=== PATIENT | female | born 1995 | race Caucasian/White ===

== ENCOUNTER 2023-02-10 19:50 | Emergency (ER) | payer MEDICAID ==
[~2023-02-10] VITALS: Ht 157.5 cm; Wt 81.6 kg
[2023-02-10 23:42] LABS: BASOPHILS % (AUTO) 0.5 % (0.0-2.0); EOSINOPHILS % (AUTO) 0.3 % (0.0-6.0); HEMATOCRIT 42 % (33-45); HEMOGLOBIN 13.8 g/dL (11.5-14.8); LYMPHOCYTES # (AUTO) 0.9 K/uL (0.8-4.8); LYMPHOCYTES % (AUTO) 26.7 % (20.0-44.0); MEAN CORPUSCULAR HEMOGLOBIN 29 PG (26.0-33.0); MEAN CORPUSCULAR HGB CONC 33 g/dl (31.0-36.0); MEAN CORPUSCULAR VOLUME 90 fL (82-100); MONOCYTES # (AUTO) 0.6 K/uL (0.1-1.30); MONOCYTES % (AUTO) 18.3 % (2.0-12.0); NEUTROPHILS # (AUTO) 1.8 K/uL (1.8-8.9); NEUTROPHILS % (AUTO) 54.2 % (43.0-81.0); PLATELET COUNT (AUTO) 152 K/uL (150-450); RED BLOOD CELL COUNT(AUTO) 4.68 MIL/uL (4.0-5.2); RED CELL DISTRIBUTION WIDTH 13.9 % (11.5-15.0); WHITE BLOOD COUNT (AUTO) 3.2 K/uL (4.3-11.0)
[2023-02-10 23:55] LABS: APPEARANCE,URINE CLEAR (CLEAR); BILIRUBIN,URINE NEGATIVE (NEGATIVE); BLOOD, URINE NEGATIVE Ery/uL (NEGATIVE); COLOR,URINE LIGHT YELLOW (YELLOW); KETONES,URINE NEGATIVE (NEGATIVE); LEUKOCYTE ESTERASE ,URINE NEGATIVE (NEGATIVE); NITRITE, URINE NEGATIVE (NEGATIVE); PH,URINE 7.5 (5.0-8.0); PROTEIN,URINE NEGATIVE (NEGATIVE); UGLUCOSE NEGATIVE (NEGATIVE); UROBILINOGEN,URINE 0.2 EU/dL (0.2)
[2023-02-10 23:56] LABS: PREGNANCY TEST URINE QUAL NEGATIVE (NEGATIVE)
[2023-02-11 00:16] LABS: CALCIUM, SERUM 8.9 mg/dL (8.5-10.1); CREATININE 0.8 mg/dL (0.6-1.3); POTASSIUM 3.7 mmol/L (3.5-5.1)
[2023-02-11 00:23] LABS: BILIRUBIN,TOTAL 0.4 mg/dL (0.2-1.0)
[2023-02-11 00:48] LABS: ANISOCYTOSIS 1+; BAND % (MANUAL) 1 % (0.0-5.0); EOSINOPHILS % (MANUAL) 1 % (0-4); LYMPHOCYTES % (MANUAL) 31 % (16-48); MONOCYTES % (MANUAL) 10 % (0-11.0); NEUTROPHILS % (MANUAL) 57 (42-76); PLATELET ESTIMATE ADEQUATE
[2023-02-11 00:51] LABS: ERYTHROCYTE SEDIMENTATION RATE 32 MM/HR (0-20)
[2023-02-11] MEDS ORDERED: TYL2T PO (01:08)
[2023-02-11] MEDS ORDERED: CEPH500C2 PO (01:08)
[2023-02-11] MEDS ORDERED: IBUP-1953 PO (01:08)
[2023-02-11 01:16] VITALS: BP 132/79; TEMP 98.3; O2SAT 99
[2023-02-11] MEDS ORDERED: GABA-532 PO (17:11)
[2023-02-11] MEDS ORDERED: APIX5TAB PO (17:11)
[2023-02-11] MEDS ORDERED: LEVO100T9 PO (17:11)
[2023-02-13] MEDS ORDERED: DOXY-326 PO (11:26)
== END 2023-02-11 01:16 | disposition home or self-care (01) ==
LOC: ER 19:56
DX: L03.116 Cellulitis of left lower limb (principal); R10.2 Pelvic and perineal pain
CPT/HCPCS: 36415; 80053-TC; 84703-TC; 85025-TC; 85652-TC; 86140-TC; 93971-TC

== ENCOUNTER 2023-02-11 14:23 | Inpatient (IN) | payer MEDICAID, OTHER ==
[~2023-02-11] VITALS: Ht 157.5 cm; Wt 80.7 kg
[~2023-02-11 14:23] MED LIST: CEPH500C2 PO; IBUP-1953 PO; TYL2T PO
[2023-02-11] MEDS ORDERED: VANCOMYCIN 1 GM in IV D5W 250 ML IV ONE (17:00)
[2023-02-11] MEDS ORDERED: CEFEPIME 1 GM in IV D5W 50 ML IV ONE (17:00)
[2023-02-11] MEDS ORDERED: GABA-532 PO (17:11)
[2023-02-11] MEDS ORDERED: LEVO100T9 PO (17:11)
[2023-02-11] MEDS ORDERED: APIX5TAB PO (17:11)
[2023-02-11 17:27] LABS: BASOPHILS # (AUTO) 0.1 K/uL (0.0-0.2); BASOPHILS % (AUTO) 1.3 % (0.0-2.0); EOSINOPHILS % (AUTO) 0.2 % (0.0-6.0); HEMATOCRIT 42 % (33-45); HEMOGLOBIN 13.9 g/dL (11.5-14.8); LYMPHOCYTES # (AUTO) 0.8 K/uL (0.8-4.8); LYMPHOCYTES % (AUTO) 20.7 % (20.0-44.0); MEAN CORPUSCULAR HEMOGLOBIN 29 PG (26.0-33.0); MEAN CORPUSCULAR HGB CONC 33 g/dl (31.0-36.0); MEAN CORPUSCULAR VOLUME 89 fL (82-100); MONOCYTES # (AUTO) 0.5 K/uL (0.1-1.30); MONOCYTES % (AUTO) 12.9 % (2.0-12.0); NEUTROPHILS # (AUTO) 2.6 K/uL (1.8-8.9); NEUTROPHILS % (AUTO) 64.9 % (43.0-81.0); PLATELET COUNT (AUTO) 155 K/uL (150-450); RED BLOOD CELL COUNT(AUTO) 4.75 MIL/uL (4.0-5.2); RED CELL DISTRIBUTION WIDTH 13.7 % (11.5-15.0)
[2023-02-11 17:46] LABS: CALCIUM, SERUM 9.4 mg/dL (8.5-10.1); CREATININE 0.8 mg/dL (0.6-1.3); POTASSIUM 3.7 mmol/L (3.5-5.1)
[2023-02-11 17:52] LABS: BILIRUBIN,DIRECT 0.1 mg/dL (0.0-0.2); BILIRUBIN,TOTAL 0.4 mg/dL (0.2-1.0); TOTAL PROTEIN, SERUM 8.1 g/dL (6.4-8.2)
[2023-02-11 17:55] LABS: INR 1.07 (0.91-1.10); PARTIAL THROMBOPLASTIN TIME 34.1 SEC (24.3-34.3); PROTHROMBIN TIME 11.3 SECS (9.2-11.1)
[2023-02-11] MEDS ORDERED: FAMOTIDINE/PF INJ 20 MG/2 ML VIAL IV ONE ×2 (18:21→18:30)
[2023-02-11] MEDS ORDERED: diphenhydrAMINE HCL 50 MG/ML VIAL ONE (18:21)
[2023-02-11] MEDS ORDERED: diphenhydrAMINE HCL 50 MG/ML VIAL IV ONE (18:30)
[2023-02-11] MEDS ORDERED: HYDROCODONE/APAP 5/325MG TABLET PO PRN (19:00)
[2023-02-11] MEDS ORDERED: Z GUARD REMEDY 4 OZ OINT TP PRN (19:00)
[2023-02-11] MEDS ORDERED: ONDANSETRON HCL/PF 4 MG/2 ML VIAL IVP PRN (19:00)
[2023-02-11] MEDS ORDERED: diphenhydrAMINE HCL 50 MG/ML VIAL IV PRN (19:00)
[2023-02-11] MEDS ORDERED: ACETAMINOPHEN 325 MG TABLET PO PRN (19:00)
[2023-02-11] MEDS ORDERED: MAG HYDROX/AL HYDROX/SIMETH 30 ML UDC PO PRN (19:00)
[2023-02-11] MEDS ORDERED: MAGNESIUM HYDROXIDE 30 ML UDC PO PRN (19:00)
[2023-02-11 20:45] VITALS: BP 110/77; TEMP 98.2; O2SAT 100
[2023-02-11 21:00] VITALS: BP 110/77; TEMP 98.2; O2SAT 100
[2023-02-11] MEDS: CLINDAMYCIN 900 MG in IV D5W 50 ML IV SCH (21:43)
[2023-02-11] MEDS: GABAPENTIN 100 MG CAPSULE PO SCH (22:19)
[2023-02-12] MEDS ORDERED: APIXABAN 5 MG TABLET PO ONE (00:30)
[2023-02-12] MEDS ORDERED: APIXABAN 5 MG TABLET ONE (00:30)
[2023-02-12] MEDS: CLINDAMYCIN 900 MG in IV D5W 50 ML IV SCH ×3 (05:30→20:35)
[2023-02-12 07:03] LABS: BASOPHILS % (AUTO) 0.4 % (0.0-2.0); EOSINOPHILS % (AUTO) 1.3 % (0.0-6.0); HEMATOCRIT 43 % (33-45); HEMOGLOBIN 14.1 g/dL (11.5-14.8); LYMPHOCYTES # (AUTO) 1.1 K/uL (0.8-4.8); LYMPHOCYTES % (AUTO) 36.8 % (20.0-44.0); MEAN CORPUSCULAR HEMOGLOBIN 30 PG (26.0-33.0); MEAN CORPUSCULAR HGB CONC 33 g/dl (31.0-36.0); MEAN CORPUSCULAR VOLUME 89 fL (82-100); MONOCYTES # (AUTO) 0.7 K/uL (0.1-1.30); MONOCYTES % (AUTO) 23.7 % (2.0-12.0); NEUTROPHILS # (AUTO) 1.2 K/uL (1.8-8.9); NEUTROPHILS % (AUTO) 37.8 % (43.0-81.0); PLATELET COUNT (AUTO) 147 K/uL (150-450); RED BLOOD CELL COUNT(AUTO) 4.79 MIL/uL (4.0-5.2); RED CELL DISTRIBUTION WIDTH 13.7 % (11.5-15.0); WHITE BLOOD COUNT (AUTO) 3.1 K/uL (4.3-11.0)
[2023-02-12 07:30] VITALS: BP 116/77; TEMP 97.8; O2SAT 100
[2023-02-12 07:43] LABS: CREATININE 0.7 mg/dL (0.6-1.3); MAGNESIUM 2.5 mg/dL (1.8-2.4); POTASSIUM 3.4 mmol/L (3.5-5.1)
[2023-02-12] MEDS: LEVOTHYROXINE SODIUM 100 MCG TABLET PO SCH (07:56)
[2023-02-12] MEDS: IBUPROFEN 400 MG TABLET PO SCH ×3 (08:04→16:31)
[2023-02-12] MEDS: APIXABAN 5 MG TABLET PO SCH ×2 (08:05→20:37)
[2023-02-12] MEDS ORDERED: POTASSIUM CHLORIDE 20 MEQ TAB.PRT.SR PO SCH (10:30)
[2023-02-12 11:03] LABS: ANISOCYTOSIS 1+; BAND % (MANUAL) 5 % (0.0-5.0); BASOPHILS % (MANUAL) 0 % (0.0-2.0); EOSINOPHILS % (MANUAL) 0 % (0-4); LYMPHOCYTES % (MANUAL) 31 % (16-48); MONOCYTES % (MANUAL) 16 % (0-11.0); NEUTROPHILS % (MANUAL) 48 (42-76); PLATELET ESTIMATE ADEQUATE
[2023-02-12 16:58] VITALS: BP 118/72; TEMP 97.8; O2SAT 100
[2023-02-12 21:40] VITALS: BP 131/100; TEMP 98.6; O2SAT 100
[2023-02-12] MEDS: GABAPENTIN 100 MG CAPSULE PO SCH (22:20)
[2023-02-13] MEDS: CLINDAMYCIN 900 MG in IV D5W 50 ML IV SCH (05:34)
[2023-02-13 06:47] LABS: MAGNESIUM 2.1 mg/dL (1.8-2.4); PHOSPHORUS 4.2 mg/dL (2.5-4.9); POTASSIUM 3.6 mmol/L (3.5-5.1)
[2023-02-13 07:23] LABS: CREATININE 0.7 mg/dL (0.6-1.3)
[2023-02-13] MEDS: LEVOTHYROXINE SODIUM 100 MCG TABLET PO SCH (07:33)
[2023-02-13 08:00] VITALS: BP 109/75; TEMP 98.2; O2SAT 99
[2023-02-13] MEDS: IBUPROFEN 400 MG TABLET PO SCH (08:54)
[2023-02-13] MEDS: APIXABAN 5 MG TABLET PO SCH (08:55)
[2023-02-13] MEDS ORDERED: DOXY-326 PO (11:26)
== END 2023-02-13 11:30 | disposition home or self-care (01) | DRG 603 ==
LOC: ER 14:39 → MED 20:22
PROVIDERS: ADMIT Internal Medicine; ATTEND Internal Medicine
DX: L03.116 Cellulitis of left lower limb (principal); Q96.9 Turner's syndrome, unspecified; Z85.118 Personal history of other malignant neoplasm of bronchus and lung; Z85.43 Personal history of malignant neoplasm of ovary; Z98.62 Peripheral vascular angioplasty status; Z79.01 Long term (current) use of anticoagulants; Z85.41 Personal history of malignant neoplasm of cervix uteri; Z85.850 Personal history of malignant neoplasm of thyroid; I89.0 Lymphedema, not elsewhere classified; Z88.1 Allergy status to other antibiotic agents; Z79.890 Hormone replacement therapy; Z79.899 Other long term (current) drug therapy; Z86.718 Personal history of other venous thrombosis and embolism; G62.9 Polyneuropathy, unspecified; E03.9 Hypothyroidism, unspecified
CPT/HCPCS: 36415; 80048-TC; 80076-TC; 83735-TC; 84100-TC; 85025-TC; 85730-TC; 87040-TC; A4223; G0378; J0692; J1200; J3370; J3490; J7050; J7060